=== PATIENT | male | born 1985 | race Caucasian/White ===

== ENCOUNTER 2016-12-20 16:31 | Emergency (ER) | payer OTHER ==
[~2016-12-20] VITALS: Ht 175.3 cm; Wt 83.9 kg
--- NOTE | ~2016-12-20 | CR282 ---
[facility] A Service of [facility] & [facility] RADIOLOGY TEXT RESULTS PATIENT: OLEG SZYMANSKI LOCATION: CFTX : 87 UNIT #: [id number] AGE: [address]: Marely Segovia SEX: M ORDER DR: [id number] [facility] [address]. [place], [place] [address] [id number] E MR#: [id number] Acc #: [id number] NAME: OLEG SZYMANSKI : 1985 SEX: M STUDY DATE/TIME: 12/20/2016 17:21 UNIT: [facility] ROOM: STUDY DESCRIPTION: CR Wrist Min 3 View Rt Attending Physician: Marely Segovia Pa-C Ordering Physician: Marely Segovia Pa-C Primary Care Physician: No Primary Care Physician MEDICAL IMAGING REPORT This report is preliminary unless electronic signature is present EXAM Right wrist series 12/20/2016 HISTORY A 31-year-old male in the ED complaining of right wrist pain and right upper arm pain after a fall yesterday. TECHNIQUE Three-view right wrist series. FINDINGS Examination is negative. No fracture, dislocation or other osseous abnormality is demonstrated. IMPRESSION Negative right wrist series. Dictated by... Vinod Kapadia M.D. THIS IS AN ELECTRONICALLY VERIFIED REPORT Vinod Kapadia M.D. at 12/21/2016 9:47 AM Anders TD: 12/21/2016 04:20 JOB #: [id number] MEDICAL IMAGING REPORT Page 1 of 1 COPY
--- NOTE | ~2016-12-20 | CR157 ---
[facility] A Service of [facility] & [facility] RADIOLOGY TEXT RESULTS PATIENT: OLEG SZYMANSKI LOCATION: CFTX : [birth year] UNIT #: [id number] AGE: [address]: Marely Segovia SEX: M ORDER DR: [id number] [facility] [address]. [place], [place] [address] [id number] E MR#: [id number] Acc #: [id number] NAME: OLEG SZYMANSKI : 1985 SEX: M STUDY DATE/TIME: 12/20/2016 17:20 UNIT: [place] ROOM: STUDY DESCRIPTION: CR Humerus Min 2 View Rt Attending Physician: Marely Segovia Pa-C Ordering Physician: Marely Segovia Pa-C Primary Care Physician: No Primary Care Physician MEDICAL IMAGING REPORT This report is preliminary unless electronic signature is present EXAM Right humerus, 12/20/2016 HISTORY A 31-year-old male in the ED complaining of right wrist and right arm pain after a fall yesterday. TECHNIQUE Two-view right humerus series. FINDINGS Examination is negative. No fracture, dislocation or other acute osseous abnormality is demonstrated. IMPRESSION Negative right humerus. Dictated by... Vinod Kapadia M.D. THIS IS AN ELECTRONICALLY VERIFIED REPORT Vinod Kapadia M.D. at 12/21/2016 9:47 AM ASHA/johnson TD: 12/21/2016 04:19 JOB #: [id number] MEDICAL IMAGING REPORT Page 1 of 1 COPY
== END 2016-12-20 18:29 | disposition home or self-care (01) ==
LOC: CED 16:31 → CFTX 16:31
DX: S63.501A Unspecified sprain of right wrist, initial encounter (principal); F17.210 Nicotine dependence, cigarettes, uncomplicated; W01.0XXA Fall on same level from slipping, tripping and stumbling without subsequent striking against object, initial encounter; Y92.009 Unspecified place in unspecified non-institutional (private) residence as the place of occurrence of the external cause
CPT/HCPCS: 73060; 73110; 99283